=== PATIENT | female | born 1985 | race Caucasian/White ===

== ENCOUNTER → 2020-04-13 | Outpatient (CLI) | payer MEDICAID | END | disposition home or self-care (01) | LOC: RAH 10:57 | PROVIDERS: ATTEND Internal Medicine | DX: E04.1 Nontoxic single thyroid nodule (principal); E03.9 Hypothyroidism, unspecified; R13.10 Dysphagia, unspecified | CPT/HCPCS: 76536 ==

== ENCOUNTER → 2020-11-09 | Outpatient (CLI) | payer MEDICAID | END | disposition home or self-care (01) | LOC: SHCH 10:14 | PROVIDERS: ATTEND Internal Medicine Cardiovascular Disease | DX: G47.33 Obstructive sleep apnea (adult) (pediatric) (principal) | CPT/HCPCS: 93306 ==

== ENCOUNTER → 2021-07-10 | Outpatient (CLI) | payer OTHER | END | disposition home or self-care (01) | LOC: OIH 15:30 | PROVIDERS: ATTEND Internal Medicine Cardiovascular Disease | DX: Z13.6 Encounter for screening for cardiovascular disorders (principal) | CPT/HCPCS: 75571 ==

== ENCOUNTER 2023-03-13 06:40 | Day surgery (SDC) | payer MEDICAID, OTHER ==
[2023-03-13] VITALS (8 sets, daily range): BP systolic 112–138; BP diastolic 62–90; PULSE 53–69; RESP 15–17
[2023-03-13] MEDS ORDERED: CALC-909 PO (06:45)
[2023-03-13] MEDS ORDERED: CALC-1209 PO (06:45)
[2023-03-13] MEDS ORDERED: MULT1CAP57 PO (06:47)
[2023-03-13] MEDS ORDERED: CHOL2000 PO (06:48)
[2023-03-13] MEDS ORDERED: SERT-440 PO (06:53)
[2023-03-13] MEDS ORDERED: FAMO40TA7 PO (06:53)
[2023-03-13] MEDS ORDERED: URSO250T12 PO (06:53)
[2023-03-13] MEDS ORDERED: LEVO75CA5 PO (06:53)
[2023-03-13] MEDS ORDERED: CYAN-52 PO (06:57)
[2023-03-13] MEDS ORDERED: LEVOTHYROXINE PO (06:57)
[2023-03-13] MEDS ORDERED: 0.9%NACL 1000ML 1,000 ML IV ONE (07:04)
[2023-03-13] MEDS ORDERED: ASCO100031 PO (07:31)
[2023-03-13] MEDS ORDERED: LIDOCAINE PF 100MG/5ML (2%) SYRINGE 5ML ONE (07:46)
[2023-03-13] MEDS ORDERED: PROPOFOL 10 MG/ML 20ML VIAL IV ONE (07:46)
== END 2023-03-13 09:13 | disposition home or self-care (01) ==
LOC: DAH 06:40 → ENDO 06:40
PROVIDERS: ATTEND Surgery
DX: R10.13 Epigastric pain (principal); Z20.822 Contact with and (suspected) exposure to COVID-19; K21.9 Gastro-esophageal reflux disease without esophagitis; K29.70 Gastritis, unspecified, without bleeding; E66.01 Morbid (severe) obesity due to excess calories; E11.9 Type 2 diabetes mellitus without complications; F41.9 Anxiety disorder, unspecified; F32.A Depression, unspecified; E78.2 Mixed hyperlipidemia; K76.0 Fatty (change of) liver, not elsewhere classified; G43.009 Migraine without aura, not intractable, without status migrainosus; J45.909 Unspecified asthma, uncomplicated; E06.3 Autoimmune thyroiditis; G47.30 Sleep apnea, unspecified; Z98.890 Other specified postprocedural states; E89.0 Postprocedural hypothyroidism; Z68.43 Body mass index [BMI] 50.0-59.9, adult; Z98.0 Intestinal bypass and anastomosis status; Z98.84 Bariatric surgery status; Z79.899 Other long term (current) drug therapy
CPT/HCPCS: 87426; 43239; J7030; J3490 ×2; A4620; A4215 ×2; A4223; A4222; A4221; A4663; A4606; J2001; J2704